=== PATIENT | female | born 1955 | race Caucasian/White ===

== ENCOUNTER 2019-05-17 08:57 | Inpatient (IN) | payer BC ==
[~2019-05-17 08:57] MED LIST: Lactated Ringers 1,000 ML IV SCH; Lidocaine 1%/Sod Bicarbonate in NS 8.4% 1 ML Syringe IDERM PRN; Sodium Chloride 0.9% 10 ML Syringe FLUSH PRN
[2019-05-17] MEDS ORDERED: FLU Vacc QS2019-20(6MOS+)/PF 60 MCG/0.5 ML SYRINGE IM ONE (09:00)
[2019-05-17] MEDS ORDERED: Bupivacaine 0.5% 30 ML SDV ONE (10:19)
--- NOTE | 2019-05-17 10:33 | PCM.PREANE ---
Preanesthetic Assessment - Anesthesia/Transfusion/Family Hx Anesthesia History: Prior Anesthesia Reaction Transfusion History: No Prior Transfusion(s) - Review of Systems General: No Symptoms Pulmonary: No Symptoms Cardiovascular: No Symptoms Gastrointestinal: No Symptoms Neurological: No Symptoms Other: Reports: None - Physical Assessment NPO Status Date: 05/17/19 NPO Status Time: 00:00 Vital Signs: Last Vital Signs Temp 98.1 F 05/17/19 09:15 Pulse 76 05/17/19 09:15 Resp 14 05/17/19 09:15 BP 157/96 H 05/17/19 09:25 Pulse Ox 94 L 05/17/19 09:15 Height: 1.63 m Weight: 127.459 kg ASA Class: 3 Mental Status: Alert & Oriented x3 Airway Class: Mallampati = 3 Dentition: Reports: Normal Dentition Thyro-Mental Finger Breadths: 3 Mouth Opening Finger Breadths: 3 ROM/Head Extension: Full Lungs: Clear to Auscultation, Normal Respiratory Effort Cardiovascular: Regular Rate, Regular Rhythm - Lab Values: Laboratory Last Values Urine Color Yellow (Yellow) 05/17/19 09:13 Urine Appearance Clear (Clear) 05/17/19 09:13 Urine pH 6.0 (5.0-8.0) 05/17/19 09:13 Ur Specific [place] 1.025 (1.005-1.030) 05/17/19 09:13 Urine Protein Negative (Negative) 05/17/19 09:13 Urine Glucose (UA) Negative (Negative) 05/17/19 09:13 Urine Ketones Negative (Negative) 05/17/19 09:13 Urine Occult Blood Negative (Negative) 05/17/19 09:13 Urine Nitrite Negative (Negative) 05/17/19 09:13 Urine Bilirubin Negative (Negative) 05/17/19 09:13 Urine Urobilinogen 0.2 (0.2-1.0) 05/17/19 09:13 Ur Leukocyte Esterase Negative (Negative) 05/17/19 09:13 Urine RBC 0-5 /hpf (0-5) 05/17/19 09:13 Urine WBC 0-5 /hpf (0-5) 05/17/19 09:13 Ur Epithelial Cells 0-5 /hpf (0-5) 05/17/19 09:13 Urine Bacteria Rare /hpf (FEW) 05/17/19 09:13 Urine Mucus Not seen /hpf (FEW) 05/17/19 09:13 - Imaging/EKG Impressions: Cardiac documentation reviewed. ISAI this month, EF 60-65% - Allergies Allergies/Adverse Reactions: Allergies Allergy/AdvReac Type Severity Reaction Status Date / Time No Known Allergies Allergy Verified 05/17/19 10:16 - Acknowledgements Anesthesia Type Planned: General Anesthesia, Spinal Pt an Appropriate Candidate for the Planned Anesthesia: Yes Alternatives and Risks of Anesthesia Discussed w Pt/Guardian: Yes Pt/Guardian Understands and Agrees with Anesthesia Plan: Yes PreAnesthesia Questionnaire HEENT History: Reports: Impaired Vision Cardiovascular History: Reports: Hypertension Other OB/BYN History: uterine fibroid, post menopausal bleeding Musculoskeletal History: Reports: Arthritis, Other (See Below) Other Musculoskeletal History: foot pain Psychiatric History: Reports: Anxiety, Depression, Other (See Below) Other Psychiatric History: eating disorder Endocrine/Metabolic History: Reports: Obesity/BMI 30+ Hematologic History: Reports: None Immunologic History: Reports: None Oncologic (Cancer) History: Reports: None Dermatologic History: Reports: Psoriasis - Past Surgical History Head Surgeries/Procedures: Reports: None HEENT Surgical History: Reports: LASIK Cardiovascular Surgical History: Reports: None Respiratory Surgical History: Reports: None GI Surgical History: Reports: Colonoscopy Female Surgical History: Reports: None Male Surgical History: Reports: None Endocrine Surgical History: Reports: None Neurological Surgical History: Reports: None Musculoskeletal Surgical History: Reports: Other (See Below) Other Musculoskeletal Surgeries/Procedures:: foot surgery Oncologic Surgical History: Reports: None Dermatological Surgical History: Reports: None - SUBSTANCE USE Smoking Status *Q: Never Smoker Second Hand Smoke Exposure: No Recreational Drug Use History: No - HOME MEDS Home Medications: Home Meds Spironolactone [Aldactone] 25 mg PO DAILY 03/24/15 [History] lisinopriL [Prinivil] 20 mg PO DAILY 03/24/15 [History] Cholecalciferol (Vitamin D3) [Vitamin D3] 5,000 unit PO DAILY 05/16/19 [History] Cyanocobalamin (Vitamin B-12) [Vitamin B-12] 1,000 mcg PO DAILY 05/16/19 [ History] Magnesium 500 mg PO DAILY 05/16/19 [History] Sertraline [Zoloft] 50 mg PO DAILY 05/16/19 [History] - CURRENT (IN HOUSE) MEDS Current Meds: Current Medications Lactated Ringer's (Ringers, Lactated) 1,000 mls @ 125 mls/hr IV ASDIRECTED [facility] Stop: 05/17/19 23:00 Last Admin: 05/17/19 09:32 Dose: 125 mls/hr Lidocaine/Sodium Bicarbonate (Buffered Lidocaine 1% In Ns 8.4%) 0.25 ml IDERM ONETIME PRN PRN Reason: Prior to IV Start Stop: 05/17/19 18:00 Last Admin: 05/17/19 09:32 Dose: 0.25 ml Sodium Chloride (Saline Flush) 10 ml FLUSH ASDIRECTED PRN PRN Reason: Keep Vein Open Stop: 05/17/19 18:00 Discontinued Medications Bupivacaine HCl (Marcaine 0.5%) Confirm Administered Dose 30 ml .ROUTE .STK-MED ONE Stop: 05/17/19 10:20 Influenza Virus Vaccine (Fluzone Quad Syringe) 60 mcg IM .ONCE ONE Stop: 05/17/19 09:01
[2019-05-17] MEDS ORDERED: Propofol 200 MG/20 ML SDV ONE (10:37)
[2019-05-17] MEDS ORDERED: Morphine PF 1 MG/ML Amp ONE (10:37)
[2019-05-17] MEDS ORDERED: fentaNYL 100 MCG/2 ML SDV ONE (10:38)
[2019-05-17] MEDS ORDERED: Lidocaine 1% 4 ML ONE (10:40)
[2019-05-17] MEDS ORDERED: Midazolam 1 MG/ML 2 ML SDV ONE (10:47)
[2019-05-17] MEDS ORDERED: EPINEPHrine 1 MG/ML SDV ONE (11:04)
[2019-05-17] MEDS ORDERED: ceFAZolin 1 GM Vial ONE (11:05)
[2019-05-17] MEDS ORDERED: Phenylephrine/Normal Saline 100 MCG/ML 10 ML Syringe ONE (11:32)
[2019-05-17] MEDS ORDERED: Lactated Ringers 1,000 ML ONE (11:45)
[2019-05-17] MEDS ORDERED: diphenhydrAMINE 50 MG/ML SDV IVPUSH PRN (11:53)
[2019-05-17] MEDS ORDERED: fentaNYL 100 MCG/2 ML SDV IVPUSH PRN (11:53)
[2019-05-17] MEDS ORDERED: Ondansetron 4 MG/2 ML SDV IVPUSH PRN ×2 (11:53→14:22)
--- NOTE | 2019-05-17 12:56 | PCM.POSTAN ---
POST ANESTHESIA ASSESSMENT - MENTAL STATUS Mental Status: Alert, Oriented - VITAL SIGNS Vital Signs: Last Vital Signs Temp 97.7 F 05/17/19 12:27 Pulse 72 05/17/19 12:27 Resp 10 L 05/17/19 12:27 BP 92/57 L 05/17/19 12:27 Pulse Ox 95 05/17/19 12:27 - RESPIRATORY Respiratory Status: Respiratory Rate WNL, Airway Patent, O2 Saturation Stable, Supplemental Oxygen - CARDIOVASCULAR CV Status: Pulse Rate WNL, Blood Pressure Stable - GASTROINTESTINAL GI Status: No Symptoms - PAIN Pain Score: 0 (post SAB) - POST OP HYDRATION Hydration Status: Adequate & Stable
[2019-05-17] MEDS ORDERED: Acetaminophen/oxyCODONE 325-5 MG Tab PO PRN (14:22)
[2019-05-17] MEDS: Ibuprofen 400 MG Tab PO SCH ×2 (14:54→20:34)
--- NOTE | 2019-05-17 15:00 | PCM.OPNOTE ---
- General Post-Op/Procedure Note Date of Surgery/Procedure: 05/17/19 Operative Procedure(s): Total abdominal hysterectomy with bilateral salpingo- oophorectomy Findings: Patient had a massively enlarged uterus with multiple fibroids. Weight of the uterus was 1224 g. Ovaries were streak ovaries. Fallopian tubes were rudimentary. Pre Op Diagnosis: 1. Uterine leiomyomata Post-Op Diagnosis: Same Anesthesia Technique: MAC, Spinal Primary Surgeon: Gilbert Peralta Secondary Surgeon: Maximilian Corbin Anesthesia Provider: Aiden Hinojosa Contractor Field Hauling: Donato Browning Reason Contractor Field Hauling Was Necessary: Retraction, assistance, patient safety, quality of care. Pathology: Uterus, tubes and ovaries as one specimen Fluid Replacement, Intraop: 2,500 Output, Urine Amount: 350 EBL in mLs: 250 Drain/Tube Comments:: Indwelling bladder catheter Complications: None Condition: Good Free Text/Narrative:: Intake & Output 05/16/19 05/17/19 05/17/19 22:59 06:59 14:59 Intake Total 720 Output Total 30 Balance 690 Surgery duration: 60 minutes Procedure: After adequate consent was obtained, the patient was taken to the operating room. She was given 3 g of Ancef IV for infection prophylaxis. She had sequential compression stockings placed for DVT prophylaxis. She is administered spinal anesthesia with MAC sedation. After adequate administration of anesthesia patient was placed in a frog-leg position and was prepped vaginally and abdominally in the routine fashion. Bassett catheter was placed. she was then returned to supine position. Patient's abdomen was then opened through a Pfannenstiel skin incision. The incision was carried down through skin, subcutaneous and fascial layers. Abdominal cavity was entered without problems. Massively enlarged uterus was then served. The right ovary was a streak ovary. Left ovary was very difficult to see as it was also a streak ovary. Left fallopian tube was difficult to identify. Right fallopian tube was removed intact with the uterus. The uterus was elevated through the incision. Retraction was with [place] Woolley and Herrera retractors. The right ovary and fallopian tube were identified and the infundibulopelvic ligament, the broad ligament and round ligament were developed using the Enseal vessel closure system. It should be noted that the anatomy was extremely distorted because of the large fibroids. Same was done on patient's left side. The cardinal ligaments and taken down on each side to the level of the to the cervix. each of the cardinal ligaments were crossclamped with straight Weldon clamps. These pedicles were cut and suture ligated with #1 Vicryl using a Elia stitch. The angles of the vagina were then crossclamped using Elia clamps 2 these pedicles were cut and were suture ligated with Elia stitch of #1 Vicryl. A short running locked #1 Vicryl suture was then placed in the mid incision to complete the closure. Hemostasis was confirmed at this time. The pelvis was irrigated with fluid aspirated. The one sponge that had been placed was removed. sponge instrument and needle counts are correct at this time.The abdominal was then closed. The fascia was closed with a running suture of #1 PDS from angle to angle. The subcutaneous area was closed with 2-0 Monocryl sutures with interrupted sutures 3. The subcuticular closure was then undertaken using 3-0 Monocryl running suture on the Wiliam needle. The incision was further approximated with Prineo mesh. The patient was discharged from the operating room in good condition.
[2019-05-17] MEDS: Lactated Ringers 1,000 ML IV SCH (16:58)
[2019-05-17] MEDS: Docusate Sodium 100 MG Cap PO SCH (20:34)
[2019-05-18] MEDS: Lactated Ringers 1,000 ML IV SCH (01:02)
--- NOTE | 2019-05-18 01:04 | PCM48HPAN ---
Post Anesthesia Note - EVALUATION WITHIN 48HRS OF ANESTHETIC Vital Signs in Normal Range: Yes Patient Participated in Evaluation: Yes Respiratory Function Stable: Yes Airway Patent: Yes Cardiovascular Function Stable: Yes Hydration Status Stable: Yes Pain Control Satisfactory: Yes Nausea and Vomiting Control Satisfactory: Yes Mental Status Recovered: Yes (no pain- no nausea states doing good) Vital Signs: Last Vital Signs Temp 97.7 F 05/17/19 20:28 Pulse 65 05/17/19 20:36 Resp 12 05/17/19 20:28 BP 122/95 H 05/17/19 20:28 Pulse Ox 94 L 05/17/19 20:36
[2019-05-18] MEDS: Ibuprofen 400 MG Tab PO SCH ×3 (01:05→08:36)
--- NOTE | 2019-05-18 06:04 | PCM.SURGPN ---
- General Info Date of Service: 05/18/19 POD#: 1 Functional Status: Reports: Pain Controlled, Tolerating Diet, Ambulating - Review of Systems General: Reports: No Symptoms Pulmonary: Reports: No Symptoms Cardiovascular: Reports: No Symptoms Gastrointestinal: Reports: Abdominal Pain (managed with medications ) Genitourinary: Reports: No Symptoms Musculoskeletal: Reports: No Symptoms Neurological: Reports: No Symptoms - Patient Data Vitals - Most Recent: Last Vital Signs Temp 36.6 C 05/18/19 05:15 Pulse 69 05/18/19 05:15 Resp 17 05/18/19 05:15 BP 101/51 L 05/18/19 05:15 Pulse Ox 97 05/18/19 05:15 Weight - Most Recent: 131.633 kg I&O - Last 24 Hours: Intake & Output 05/17/19 05/17/19 05/18/19 14:59 22:59 06:59 Intake Total 720 3000 3900 Output Total 684 157 5628 Balance 340 2400 1300 Lab Results Last 24 Hrs: Laboratory Results - last 24 hr 05/17/19 05/17/19 Range/Units 09:13 10:19 Urine Color Yellow (Yellow) Urine Appearance Clear (Clear) Urine pH 6.0 (5.0-8.0) Ur Specific [place] 1.025 (1.005-1.030) Urine Protein Negative (Negative) Urine Glucose (UA) Negative (Negative) Urine Ketones Negative (Negative) Urine Occult Blood Negative (Negative) Urine Nitrite Negative (Negative) Urine Bilirubin Negative (Negative) Urine Urobilinogen 0.2 (0.2-1.0) Ur Leukocyte Esterase Negative (Negative) Urine RBC 0-5 (0-5) /hpf Urine WBC 0-5 (0-5) /hpf Ur Epithelial Cells 0-5 (0-5) /hpf Urine Bacteria Rare (FEW) /hpf Urine Mucus Not seen (FEW) /hpf Blood Type AB POSITIVE Gel Antibody Screen Negative Med Orders - Current: Current Medications Docusate Sodium (Colace) 100 mg PO BID [facility] Last Admin: 05/17/19 20:34 Dose: 100 mg Ibuprofen (Motrin) 800 mg PO Q6H [facility] Last Admin: 05/18/19 01:51 Dose: Not Given Lisinopril (Prinivil) 20 mg PO DAILY [facility] Magnesium Oxide (Magnesium Oxide) 400 mg PO DAILY [facility] Ondansetron HCl (Zofran) 4 mg IVPUSH Q4H PRN PRN Reason: Nausea/Vomiting Oxycodone/Acetaminophen (Percocet 325-5 Mg) 2 tab PO Q4H PRN PRN Reason: Pain (severe 7-10) Sertraline HCl (Zoloft) 50 mg PO DAILY [facility] Spironolactone (Aldactone) 25 mg PO DAILY [facility] Discontinued Medications Bupivacaine HCl (Marcaine 0.5%) Confirm Administered Dose 30 ml .ROUTE .STK-MED ONE Stop: 05/17/19 10:20 Last Admin: 05/17/19 11:20 Dose: 20 ml Cefazolin Sodium (Ancef) Confirm Administered Dose 3 gm .ROUTE .STK-MED ONE Stop: 05/17/19 11:06 Diphenhydramine HCl (Benadryl) 25 mg IVPUSH Q6H PRN PRN Reason: Pruritis Stop: 05/17/19 15:00 Epinephrine HCl (Adrenalin) Confirm Administered Dose 1 mg .ROUTE .STK-MED ONE Stop: 05/17/19 11:05 Fentanyl (Sublimaze) Confirm Administered Dose 100 mcg .ROUTE .STK-MED ONE Stop: 05/17/19 10:39 Fentanyl (Sublimaze) 50 mcg IVPUSH Q5M PRN PRN Reason: Pain Stop: 05/17/19 15:00 Lactated Ringer's (Ringers, Lactated) 1,000 mls @ 125 mls/hr IV ASDIRECTED [facility] Stop: 05/17/19 23:00 Last Admin: 05/17/19 09:32 Dose: 125 mls/hr Lidocaine HCl (Xylocaine-Mpf 1%) Confirm Administered Dose 4 mls @ as directed .ROUTE .STK-MED ONE Stop: 05/17/19 10:41 Lactated Ringer's (Ringers, Lactated) Confirm Administered Dose 1,000 mls @ as directed .ROUTE .STK-MED ONE Stop: 05/17/19 11:46 Lactated Ringer's (Ringers, Lactated) 1,000 mls @ 125 mls/hr IV ASDIRECTED [facility] Last Admin: 05/18/19 01:02 Dose: 125 mls/hr Influenza Virus Vaccine (Fluzone Quad Syringe) 60 mcg IM .ONCE ONE Stop: 05/17/19 09:01 Last Admin: 05/17/19 14:33 Dose: Not Given Lidocaine/Sodium Bicarbonate (Buffered Lidocaine 1% In Ns 8.4%) 0.25 ml IDERM ONETIME PRN PRN Reason: Prior to IV Start Stop: 05/17/19 18:00 Last Admin: 05/17/19 09:32 Dose: 0.25 ml Midazolam HCl (Versed 1 Mg/Ml) Confirm Administered Dose 2 mg .ROUTE .STK-MED ONE Stop: 05/17/19 10:48 Morphine Sulfate (Duramorph Pf) Confirm Administered Dose 1 mg .ROUTE .STK-MED ONE Stop: 05/17/19 10:38 Ondansetron HCl (Zofran) 4 mg IVPUSH ONETIME PRN PRN Reason: Nausea/Vomiting Stop: 05/17/19 15:00 Phenylephrine HCl (Phenylephrine In Ns 100 Mcg/Ml) Confirm Administered Dose 1 mg .ROUTE .STK-MED ONE Stop: 05/17/19 11:33 Propofol (Diprivan 20 Ml) Confirm Administered Dose 600 mg .ROUTE .STK-MED ONE Stop: 05/17/19 10:38 Sodium Chloride (Saline Flush) 10 ml FLUSH ASDIRECTED PRN PRN Reason: Keep Vein Open Stop: 05/17/19 18:00 - Exam Wound/Incisions: Healing Well, No Drainage Quality Assessment: Supplemental Oxygen, Urine Catheter General: Alert, Oriented, Cooperative Lungs: Clear to Auscultation, Normal Respiratory Effort Cardiovascular: Regular Rate, Regular Rhythm GI/Abdominal Exam: Soft, Tender (appropriate post op) Extremities: Normal Inspection Skin: Warm, Dry, Intact Sepsis Event Note - Evaluation Sepsis Screening Result: No Definite Risk - Focused Exam Vital Signs: Vital Signs Temp Pulse Resp BP Pulse Ox Pulse Ox 05/18/19 05:15 36.6 C 69 17 101/51 L 97 05/18/19 01:05 36.7 C 67 16 102/64 93 L 05/17/19 20:36 65 94 L 05/17/19 20:28 36.5 C 51 L 12 122/95 H 91 L 05/17/19 18:05 95 Date Exam was Performed: 05/18/19 Time Exam was Performed: 10:52 - Problem List & Annotations (1) S/P abdominal hysterectomy SNOMED Code(s): 686903779, 729144850 Code(s): Z90.710 - ACQUIRED ABSENCE OF BOTH CERVIX AND UTERUS Status: Acute Current Visit: Yes - Problem List Review Problem List Initiated/Reviewed/Updated: Yes - My Orders Last 24 Hours: Active Orders 24 hr Category Date Time Status Ambulate [RC] ASDIRECTED Care 05/17/19 14:22 Active Antiembolic Devices [RC] PER UNIT ROUTINE Care 05/17/19 14:22 Active Incentive Spirometry [RT Incentive Spirometry] [RC] Care 05/18/19 05:59 Ordered Q2HWA Pulse Oximetry [RC] ASDIRECTED Care 05/17/19 11:53 Inactive Ready for Discharge [RC] PER UNIT ROUTINE Care 05/18/19 06:04 Ordered Urinary Catheter Removal [RC] 0700 Care 05/17/19 14:22 Active Vital Signs [RC] Q4HR Care 05/17/19 11:53 Inactive Vital Signs [RC] Q4HR Care 05/17/19 14:22 Active Regular Diet [DIET] Diet 05/17/19 Dinner Active Acetaminophen/oxyCODONE [Percocet 325-5 MG] Med 05/17/19 14:22 Active 2 tab PO Q4H PRN Docusate Sodium [Colace] Med 05/17/19 21:00 Active 100 mg PO BID Ibuprofen [Motrin] Med 05/17/19 14:30 Active 800 mg PO Q6H Magnesium Oxide Med 05/18/19 09:00 Active 400 mg PO DAILY Ondansetron [Zofran] Med 05/17/19 14:22 Active 4 mg IVPUSH Q4H PRN Sertraline [Zoloft] Med 05/18/19 09:00 Active 50 mg PO DAILY Spironolactone [Aldactone] Med 05/18/19 09:00 Active 25 mg PO DAILY lisinopriL [Prinivil] Med 05/18/19 09:00 Active 20 mg PO DAILY Pulse Oximetry Continuous Monitoring [OM.PC] Routine Oth 05/17/19 14:23 Active Sequential Compression Device [OM.PC] Per Unit Routine Oth 05/17/19 14:22 Ordered Resuscitation Status Routine Resus Stat 05/17/19 14:17 Ordered Medication Orders Docusate Sodium (Colace) 100 mg PO BID [facility] Last Admin: 05/17/19 20:34 Dose: 100 mg Ibuprofen (Motrin) 800 mg PO Q6H [facility] Last Admin: 05/18/19 01:51 Dose: Admin: 05/18/19 01:05 Dose: 800 mg Admin: 05/17/19 20:34 Dose: 800 mg Admin: 05/17/19 14:54 Dose: 800 mg Lisinopril (Prinivil) 20 mg PO DAILY [facility] Magnesium Oxide (Magnesium Oxide) 400 mg PO DAILY [facility] Ondansetron HCl (Zofran) 4 mg IVPUSH Q4H PRN PRN Reason: Nausea/Vomiting Oxycodone/Acetaminophen (Percocet 325-5 Mg) 2 tab PO Q4H PRN PRN Reason: Pain (severe 7-10) Sertraline HCl (Zoloft) 50 mg PO DAILY [facility] Spironolactone (Aldactone) 25 mg PO DAILY [facility] - Assessment Assessment (Free Text/Narrative):: POD#[address] [facility] - Plan Plan (Free Text/Narrative):: * Bassett catheter to be removed * Oxygen to be discontinued * Routine cares * Discharge home today per patient preference
--- NOTE | 2019-05-18 06:05 | PCM.DCSUM1 ---
Discharge Summary - Discharge Data Discharge Date: 05/18/19 Discharge Disposition: Home, Self-Care 01 Condition: Good - Referral to Home Health Primary Care Physician: Rayne Juarez MD - Patient Summary/Data Operative Procedure(s) Performed: Total abdominal hysterectomy with bilateral salpingo-oophorectomy Complications: none Consults: None Recommended Follow-up Testing/Procedures: Follow up with Dr. Peralta and Dr. Juarez in 1 week Hospital Course: 63 y/o woman admitted for planned HORACE due to fibroid uterus. Surgery was uncomplicated. See operative note. Post op patient did well. Was meeting all goals by POD#1. Did desires discharge to home which was felt reasonable - Patient Instructions Diet: Regular Diet as Tolerated Activity: No Lifting Over 10 Pounds Driving: Do Not Drive (whilte taking narcotics ) Showering/Bathing: May Shower, No Tub Bathing/Swimming Wound/Incision Care: Keep Operative Site/Wound Site Clean and Dry Notify Provider of: Fever, Increased Pain, Swelling and Redness, Drainage, Nausea and/or Vomiting - Discharge Plan *PRESCRIPTION DRUG MONITORING PROGRAM REVIEWED*: No *COPY OF PRESCRIPTION DRUG MONITORING REPORT IN PATIENT RAHEEL: No Prescriptions/Med Rec: Acetaminophen/oxyCODONE [Percocet 325-5 MG] 1 - 2 tab PO Q4H PRN #20 tablet PRN Reason: Pain (Severe 7-10) Home Medications: Home Meds Spironolactone [Aldactone] 25 mg PO DAILY 03/24/15 [History] lisinopriL [Prinivil] 20 mg PO DAILY 03/24/15 [History] Cholecalciferol (Vitamin D3) [Vitamin D3] 5,000 unit PO DAILY 05/16/19 [History] Cyanocobalamin (Vitamin B-12) [Vitamin B-12] 1,000 mcg PO DAILY 05/16/19 [ History] Magnesium 500 mg PO DAILY 05/16/19 [History] Sertraline [Zoloft] 50 mg PO DAILY 05/16/19 [History] Acetaminophen/oxyCODONE [Percocet 325-5 MG] 1 - 2 tab PO Q4H PRN #20 tablet 11/27 [Rx] Docusate Sodium [Colace] 100 mg PO BID cap 05/18/19 [Rx] Patient Handouts: Abdominal Hysterectomy, [id number] Referrals: Gilbert Peralta MD [Physician] - (Please follow up with Dr. Peralta this week or as previously arranged. ) Rayne Juarez MD [Primary Care Provider] - (Please follow up with Dr. Juarez this week or as previously arranged. ) - Discharge Summary/Plan Comment DC Time >30 min.: No - Patient Data Vitals - Most Recent: Last Vital Signs Temp 36.6 C 05/18/19 05:15 Pulse 69 05/18/19 05:15 Resp 17 05/18/19 05:15 BP 101/51 L 05/18/19 05:15 Pulse Ox 97 05/18/19 05:15 Weight - Most Recent: 131.633 kg I&O - Last 24 hours: Intake & Output 05/17/19 05/17/19 05/18/19 14:59 22:59 06:59 Intake Total 720 3000 3900 Output Total 111 628 9718 Balance 340 2400 1300 Lab Results - Last 24 hrs: Laboratory Results - last 24 hr 05/17/19 05/17/19 Range/Units 09:13 10:19 Urine Color Yellow (Yellow) Urine Appearance Clear (Clear) Urine pH 6.0 (5.0-8.0) Ur Specific [place] 1.025 (1.005-1.030) Urine Protein Negative (Negative) Urine Glucose (UA) Negative (Negative) Urine Ketones Negative (Negative) Urine Occult Blood Negative (Negative) Urine Nitrite Negative (Negative) Urine Bilirubin Negative (Negative) Urine Urobilinogen 0.2 (0.2-1.0) Ur Leukocyte Esterase Negative (Negative) Urine RBC 0-5 (0-5) /hpf Urine WBC 0-5 (0-5) /hpf Ur Epithelial Cells 0-5 (0-5) /hpf Urine Bacteria Rare (FEW) /hpf Urine Mucus Not seen (FEW) /hpf Blood Type AB POSITIVE Gel Antibody Screen Negative Med Orders - Current: Current Medications Docusate Sodium (Colace) 100 mg PO BID [facility] Last Admin: 05/17/19 20:34 Dose: 100 mg Ibuprofen (Motrin) 800 mg PO Q6H [facility] Last Admin: 05/18/19 01:51 Dose: Not Given Lisinopril (Prinivil) 20 mg PO DAILY [facility] Magnesium Oxide (Magnesium Oxide) 400 mg PO DAILY [facility] Ondansetron HCl (Zofran) 4 mg IVPUSH Q4H PRN PRN Reason: Nausea/Vomiting Oxycodone/Acetaminophen (Percocet 325-5 Mg) 2 tab PO Q4H PRN PRN Reason: Pain (severe 7-10) Sertraline HCl (Zoloft) 50 mg PO DAILY [facility] Spironolactone (Aldactone) 25 mg PO DAILY [facility] Discontinued Medications Bupivacaine HCl (Marcaine 0.5%) Confirm Administered Dose 30 ml .ROUTE .STK-MED ONE Stop: 05/17/19 10:20 Last Admin: 05/17/19 11:20 Dose: 20 ml Cefazolin Sodium (Ancef) Confirm Administered Dose 3 gm .ROUTE .STK-MED ONE Stop: 05/17/19 11:06 Diphenhydramine HCl (Benadryl) 25 mg IVPUSH Q6H PRN PRN Reason: Pruritis Stop: 05/17/19 15:00 Epinephrine HCl (Adrenalin) Confirm Administered Dose 1 mg .ROUTE .STK-MED ONE Stop: 05/17/19 11:05 Fentanyl (Sublimaze) Confirm Administered Dose 100 mcg .ROUTE .STK-MED ONE Stop: 05/17/19 10:39 Fentanyl (Sublimaze) 50 mcg IVPUSH Q5M PRN PRN Reason: Pain Stop: 05/17/19 15:00 Lactated Ringer's (Ringers, Lactated) 1,000 mls @ 125 mls/hr IV ASDIRECTED [facility] Stop: 05/17/19 23:00 Last Admin: 05/17/19 09:32 Dose: 125 mls/hr Lidocaine HCl (Xylocaine-Mpf 1%) Confirm Administered Dose 4 mls @ as directed .ROUTE .STK-MED ONE Stop: 05/17/19 10:41 Lactated Ringer's (Ringers, Lactated) Confirm Administered Dose 1,000 mls @ as directed .ROUTE .STK-MED ONE Stop: 05/17/19 11:46 Lactated Ringer's (Ringers, Lactated) 1,000 mls @ 125 mls/hr IV ASDIRECTED [facility] Last Admin: 05/18/19 01:02 Dose: 125 mls/hr Influenza Virus Vaccine (Fluzone Quad Syringe) 60 mcg IM .ONCE ONE Stop: 05/17/19 09:01 Last Admin: 05/17/19 14:33 Dose: Not Given Lidocaine/Sodium Bicarbonate (Buffered Lidocaine 1% In Ns 8.4%) 0.25 ml IDERM ONETIME PRN PRN Reason: Prior to IV Start Stop: 05/17/19 18:00 Last Admin: 05/17/19 09:32 Dose: 0.25 ml Midazolam HCl (Versed 1 Mg/Ml) Confirm Administered Dose 2 mg .ROUTE .STK-MED ONE Stop: 05/17/19 10:48 Morphine Sulfate (Duramorph Pf) Confirm Administered Dose 1 mg .ROUTE .STK-MED ONE Stop: 05/17/19 10:38 Ondansetron HCl (Zofran) 4 mg IVPUSH ONETIME PRN PRN Reason: Nausea/Vomiting Stop: 05/17/19 15:00 Phenylephrine HCl (Phenylephrine In Ns 100 Mcg/Ml) Confirm Administered Dose 1 mg .ROUTE .STK-MED ONE Stop: 05/17/19 11:33 Propofol (Diprivan 20 Ml) Confirm Administered Dose 600 mg .ROUTE .STK-MED ONE Stop: 05/17/19 10:38 Sodium Chloride (Saline Flush) 10 ml FLUSH ASDIRECTED PRN PRN Reason: Keep Vein Open Stop: 05/17/19 18:00
[2019-05-18 08:29] VITALS: BP 125/85; PULSE 66
[2019-05-18] MEDS: Docusate Sodium 100 MG Cap PO SCH (08:36)
[2019-05-18] MEDS ORDERED: Spironolactone 25 MG Tab PO SCH (09:00)
[2019-05-18] MEDS ORDERED: Magnesium Oxide 400 MG Tab PO SCH (09:00)
[2019-05-18] MEDS ORDERED: Lisinopril 20 MG Tab PO SCH (09:00)
[2019-05-18] MEDS ORDERED: Sertraline 50 MG Tab PO SCH (09:00)
[2019-05-18] MEDS ORDERED: FLU Vacc QS2019-20(6MOS+)/PF 60 MCG/0.5 ML SYRINGE IM ONE (10:45)
== END 2019-05-18 12:17 | disposition home or self-care (01) | DRG 519 ==
LOC: JD.MS 08:57
PROVIDERS: ADMIT Obstetrics & Gynecology; ATTEND Obstetrics & Gynecology
PROC: 0UT90ZZ Resection of Uterus, Open Approach (ICD-10-PCS; principal; 2019-05-17)
PROC: 0UT20ZZ Resection of Bilateral Ovaries, Open Approach (ICD-10-PCS; 2019-05-17)
PROC: 0UT70ZZ Resection of Bilateral Fallopian Tubes, Open Approach (ICD-10-PCS; 2019-05-17)
DX: D25.9 Leiomyoma of uterus, unspecified (principal); F41.9 Anxiety disorder, unspecified; I10 Essential (primary) hypertension; F32.9 Major depressive disorder, single episode, unspecified; M19.90 Unspecified osteoarthritis, unspecified site; G89.29 Other chronic pain; M79.673 Pain in unspecified foot; Z98.890 Other specified postprocedural states; Z79.899 Other long term (current) drug therapy
CPT/HCPCS: 00840; 36415; 81001; 86850; 86900; 86901; 90686; 94762; A9270-GY; G0008; J0171; J0690; J2001; J2250; J2274; J2370; J2704; J3010; J3490; J7120